=== PATIENT | male | born 1985 | race Caucasian/White ===

== ENCOUNTER 2018-02-26 14:31 | Outpatient (CLI) ==
[2016-05-28 12:20] VITALS: BMI 26.3
--- NOTE | 2018-02-26 15:13 | DI ---
Exam: Three x-rays of the chest. Comparison: 08/18/2010. Reason for exam: Short of breath. FINDINGS: No pneumothorax, pleural effusion, or focal consolidation. The cardiac silhouette is not enlarged. The imaged osseous structures appear grossly unremarkable without acute fracture. Impression: No acute cardiopulmonary process.
== END 2018-02-26 14:32 | disposition home or self-care (01) ==
LOC: LAB 14:31
PROVIDERS: ATTEND Emergency Medicine
DX: R06.02 Shortness of breath (principal)
CPT/HCPCS: 36415; 80053; 85025

== ENCOUNTER 2018-03-04 11:53 | Outpatient (CLI) ==
[2016-05-28 12:20] VITALS: BMI 26.3
== END 2018-03-04 11:54 | disposition home or self-care (01) ==
LOC: RHC-LAB 11:53
PROVIDERS: ATTEND Emergency Medicine
DX: K92.0 Hematemesis (principal); K21.9 Gastro-esophageal reflux disease without esophagitis
CPT/HCPCS: 36415; 85025; 85610